=== PATIENT | female | born 1975 | race Caucasian/White ===

== ENCOUNTER 2022-11-28 11:27 | Inpatient (IN) | payer OTHER, MEDICAID ==
[~2022-11-28] VITALS: Ht 157.5 cm; Wt 90.7 kg
[2022-11-28 11:54] VITALS: BP_SYST 139; PULSE 89; RESP 16; TEMP 97.7; O2SAT 96
[2022-11-28 16:31] LABS: BILIRUBIN,URINE NEGATIVE (NEGATIVE); BLOOD, URINE NEGATIVE (NEGATIVE); CLARITY/URINE CLEAR (CLEAR); COLOR,URINE YELLOW (YELLOW); GLUCOSE,URINE NEGATIVE (NEGATIVE); KETONES,URINE TRACE (NEGATIVE); LEUKOCYTE ESTERASE ,URINE NEGATIVE (NEGATIVE); NITRITE, URINE NEGATIVE (NEGATIVE); PH,URINE 6.5 (5.0-8.0); PROTEIN URINE NEGATIVE (NEGATIVE); UROBILINOGEN,URINE 0.2 (0.2-1.0)
[2022-11-28] MEDS ORDERED: PIPERACILLIN/TAZO 4.5 GM in NS 100 ML IV ONE (17:15)
[2022-11-28] MEDS ORDERED: PIPERACILLIN/TAZOBACTAM 4.5 GM/VIAL (ZOSYN) IV ONE (17:39)
[2022-11-28 17:53] LABS: BASOPHILS # (AUTO) 0.1 K/uL (0.0-0.2); EOSINOPHILS # (AUTO) 0.2 K/uL (0.0-0.4); EOSINOPHILS % (AUTO) 2.1 % (0.0-4.0); HEMOGLOBIN 13.7 g/dL (12.0-16.0)
[2022-11-28 17:58] LABS: BASOPHILS % (AUTO) 1.3 % (0.0-2.0); HEMATOCRIT 41.2 % (36-48); LYMPHOCYTES # (AUTO) 2.8 K/uL (1.0-5.5); MEAN CORPUSCULAR HEMOGLOBIN 30 pg (27-31); MEAN CORPUSCULAR HGB CONC 33 % (32-36); MEAN CORPUSCULAR VOLUME 90 fL (79.0-98.0); MONOCYTES # (AUTO) 0.7 K/uL (0.0-1.0); MONOCYTES % (AUTO) 6.7 % (1.7-9.3); NEUTROPHILS # (AUTO) 6.2 K/uL (1.8-7.7); NEUTROPHILS % (AUTO) 61.9 % (40.0-70.0); PLATELET COUNT (AUTO) 329 K/uL (130-430); RED CELL DISTRIBUTION WIDTH 13.1 % (9.0-15.0); WHITE BLOOD COUNT (AUTO) 10.1 K/uL (4.8-10.8)
[2022-11-28 18:07] LABS: CALCIUM 8.9 mg/dL (8.4-11.0); CREATININE 0.64 mg/dL (0.55-1.30); POTASSIUM 3.8 mmol/L (3.5-5.1); TOTAL BILIRUBIN 0.1 mg/dL (0.0-1.0); TOTAL PROTEIN, SERUM 6.6 g/dL (6.4-8.3)
[2022-11-28] MEDS ORDERED: LURA40TA2 PO (18:36)
[2022-11-28] MEDS ORDERED: LISI20TA30 PO (18:36)
[2022-11-28] MEDS ORDERED: GYNECR VG (18:36)
[2022-11-28] MEDS ORDERED: TEMA30CA5 PO (18:36)
[2022-11-28] MEDS ORDERED: DOCU-156 PO (18:36)
[2022-11-28] MEDS ORDERED: TRAZ-251 PO (18:36)
[2022-11-28] MEDS ORDERED: SENN8.6T19 PO (18:36)
[2022-11-28] MEDS ORDERED: MELA10CA PO (18:36)
[2022-11-28] MEDS ORDERED: BACL10TA PO (18:36)
[2022-11-28] MEDS ORDERED: GABA-534 PO (18:36)
[2022-11-28] MEDS ORDERED: ESCI20TA PO (18:36)
[2022-11-28] MEDS ORDERED: HYDR-4038 PO (18:36)
[2022-11-28 21:30] VITALS: BP_SYST 146; PULSE 78; TEMP 98.2; O2SAT 96
[2022-11-28 22:08] VITALS: BP_SYST 146; PULSE 78; RESP 18; TEMP 98.2
[2022-11-29] VITALS (7 sets, daily range): BP systolic 137–157; PULSE 76–79; RESP 16–19; TEMP 97.6–98.2; O2SAT 95–99
[2022-11-29] MEDS ORDERED: ONDANSETRON HCL 4 MG/2 ML VIAL IVP PRN (11:45)
[2022-11-29] MEDS ORDERED: HYDROcodone/ACETAMIN 5-325 MG TAB (NORCO/ VICODIN) PO PRN ×2 (11:45→12:15)
[2022-11-29] MEDS ORDERED: ACETAMINOPHEN 325 MG TABLET PO PRN ×2 (11:45→12:15)
[2022-11-29] MEDS ORDERED: LORazepam 2 MG/ML VIAL IVP PRN (11:45)
[2022-11-29] MEDS ORDERED: NALOXONE HCL 0.4 MG/ML AMP (NARCAN) IVP PRN ×2 (11:45)
[2022-11-29] MEDS: NORMAL SALINE 5 ML DISP.SYRIN IVF SCH ×2 (13:07→22:02)
[2022-11-29] MEDS: PIPERACILLIN/TAZO 3.375/DEX-IS 50 ML IV SCH ×2 (13:22→18:09)
[2022-11-29] MEDS: GABAPENTIN 400 MG CAPSULE PO SCH ×2 (14:39→22:01)
[2022-11-29] MEDS: BACLOFEN 10 MG TABLET PO SCH ×2 (14:39→22:02)
[2022-11-29] MEDS ORDERED: CLOTRIMAZOLE 2% 3 DAY VAGINAL 21 GM CREAM.APPL VG SCH (21:00)
[2022-11-29] MEDS ORDERED: SENNOSIDES 8.6 MG TABLET PO PRN (21:00)
[2022-11-29] MEDS: MELATONIN 5 MG TABLET PO SCH (22:01)
[2022-11-29] MEDS: traZODone HCL 50 MG TABLET (DESYREL) PO SCH (22:01)
[2022-11-30] MEDS: PIPERACILLIN/TAZO 3.375/DEX-IS 50 ML IV SCH ×4 (00:27→18:13)
[2022-11-30 01:05] VITALS: BP_SYST 142; PULSE 81; RESP 17; TEMP 98; O2SAT 94
[2022-11-30] MEDS: NORMAL SALINE 5 ML DISP.SYRIN IVF SCH ×3 (06:28→21:53)
[2022-11-30 07:13] LABS: BASOPHILS # (AUTO) 0.1 K/uL (0.0-0.2); BASOPHILS % (AUTO) 1.5 % (0.0-2.0); EOSINOPHILS # (AUTO) 0.1 K/uL (0.0-0.4); EOSINOPHILS % (AUTO) 1.7 % (0.0-4.0); HEMATOCRIT 41.8 % (36-48); HEMOGLOBIN 13.6 g/dL (12.0-16.0); LYMPHOCYTES # (AUTO) 2.1 K/uL (1.0-5.5); LYMPHOCYTES % (AUTO) 29.1 % (20.5-51.5); MEAN CORPUSCULAR HEMOGLOBIN 29 pg (27-31); MEAN CORPUSCULAR HGB CONC 33 % (32-36); MEAN CORPUSCULAR VOLUME 90 fL (79.0-98.0); MONOCYTES # (AUTO) 0.6 K/uL (0.0-1.0); MONOCYTES % (AUTO) 7.8 % (1.7-9.3); NEUTROPHILS # (AUTO) 4.3 K/uL (1.8-7.7); NEUTROPHILS % (AUTO) 59.9 % (40.0-70.0); PLATELET COUNT (AUTO) 296 K/uL (130-430); RED BLOOD CELL COUNT(AUTO) 4.66 MIL/uL (4.2-6.2); RED CELL DISTRIBUTION WIDTH 13.3 % (9.0-15.0); WHITE BLOOD COUNT (AUTO) 7.1 K/uL (4.8-10.8)
[2022-11-30 08:00] VITALS: BP_SYST 130; PULSE 69; RESP 16; TEMP 96.7; O2SAT 94
[2022-11-30 08:03] LABS: CALCIUM 8.9 mg/dL (8.4-11.0); CREATININE 0.6 mg/dL (0.55-1.30); POTASSIUM 3.7 mmol/L (3.5-5.1)
[2022-11-30] MEDS: GABAPENTIN 400 MG CAPSULE PO SCH ×3 (08:36→21:51)
[2022-11-30] MEDS: CITALOPRAM HYDROBROMIDE 20 MG TABLET PO SCH (08:36)
[2022-11-30] MEDS: DOCUSATE SODIUM 100 MG CAPSULE PO SCH (08:36)
[2022-11-30] MEDS: lisinopriL 20 MG TABLET PO SCH (08:37)
[2022-11-30] MEDS: BACLOFEN 10 MG TABLET PO SCH ×3 (08:37→21:52)
[2022-11-30] MEDS ORDERED: ESCITALOPRAM OXALATE 10 MG TABLET PO SCH (09:00)
[2022-11-30 09:45] VITALS: O2SAT 97
[2022-11-30 12:00] VITALS: BP_SYST 136; PULSE 72; RESP 17; TEMP 97.6; O2SAT 97
[2022-11-30 16:38] VITALS: BP_SYST 132; PULSE 70; RESP 16; TEMP 96.9; O2SAT 96
[2022-11-30 19:00] VITALS: O2SAT 95
[2022-11-30] MEDS: traZODone HCL 50 MG TABLET (DESYREL) PO SCH (21:51)
[2022-11-30] MEDS: MELATONIN 5 MG TABLET PO SCH (21:52)
[2022-11-30] MEDS: TEMAZEPAM 15 MG CAPSULE PO SCH (21:52)
[2022-12-01] VITALS: BP_SYST 143; PULSE 68; RESP 16; TEMP 97.9; O2SAT 96
[2022-12-01] MEDS: PIPERACILLIN/TAZO 3.375/DEX-IS 50 ML IV SCH ×2 (00:47→06:48)
[2022-12-01] MEDS: NORMAL SALINE 5 ML DISP.SYRIN IVF SCH ×3 (06:48→23:56)
[2022-12-01 07:17] LABS: BASOPHILS # (AUTO) 0.1 K/uL (0.0-0.2); BASOPHILS % (AUTO) 1.5 % (0.0-2.0); EOSINOPHILS # (AUTO) 0.1 K/uL (0.0-0.4); EOSINOPHILS % (AUTO) 2.2 % (0.0-4.0); HEMATOCRIT 41.4 % (36-48); HEMOGLOBIN 13.5 g/dL (12.0-16.0); LYMPHOCYTES % (AUTO) 32.2 % (20.5-51.5); MEAN CORPUSCULAR HEMOGLOBIN 29 pg (27-31); MEAN CORPUSCULAR HGB CONC 33 % (32-36); MEAN CORPUSCULAR VOLUME 90 fL (79.0-98.0); MONOCYTES # (AUTO) 0.5 K/uL (0.0-1.0); MONOCYTES % (AUTO) 7.2 % (1.7-9.3); NEUTROPHILS # (AUTO) 3.6 K/uL (1.8-7.7); NEUTROPHILS % (AUTO) 56.9 % (40.0-70.0); PLATELET COUNT (AUTO) 285 K/uL (130-430); RED BLOOD CELL COUNT(AUTO) 4.59 MIL/uL (4.2-6.2); RED CELL DISTRIBUTION WIDTH 13.2 % (9.0-15.0); WHITE BLOOD COUNT (AUTO) 6.3 K/uL (4.8-10.8)
[2022-12-01 07:18] LABS: CALCIUM 8.9 mg/dL (8.4-11.0); POTASSIUM 3.7 mmol/L (3.5-5.1)
[2022-12-01 07:19] LABS: ALBUMIN 2.8 g/dL (3.4-4.8); CREATININE 0.62 mg/dL (0.55-1.30); TOTAL BILIRUBIN 0.3 mg/dL (0.0-1.0); TOTAL PROTEIN, SERUM 6.3 g/dL (6.4-8.3)
[2022-12-01 07:35] LABS: ERYTHROCYTE SEDIMENTATION RATE 16 MM/HR (0-20)
[2022-12-01 11:09] VITALS: BP_SYST 138; PULSE 75; RESP 15; TEMP 98.6; O2SAT 91
[2022-12-01] MEDS: CITALOPRAM HYDROBROMIDE 20 MG TABLET PO SCH (11:46)
[2022-12-01] MEDS: BACLOFEN 10 MG TABLET PO SCH ×3 (11:46→23:55)
[2022-12-01] MEDS: GABAPENTIN 400 MG CAPSULE PO SCH ×3 (11:48→23:55)
[2022-12-01] MEDS: DOCUSATE SODIUM 100 MG CAPSULE PO SCH (11:48)
[2022-12-01] MEDS: lisinopriL 20 MG TABLET PO SCH (11:49)
[2022-12-01] MEDS: ERTAPENEM SODIUM 1 GM in NS 50 ML IV SCH (12:41)
[2022-12-01 17:09] VITALS: BP_SYST 132; PULSE 76; RESP 15; TEMP 98.6; O2SAT 95
[2022-12-01 20:15] VITALS: BP_SYST 147; PULSE 75; RESP 20; TEMP 97; O2SAT 95
[2022-12-01] MEDS: MELATONIN 5 MG TABLET PO SCH (23:54)
[2022-12-01] MEDS: traZODone HCL 50 MG TABLET (DESYREL) PO SCH (23:55)
[2022-12-01] MEDS: TEMAZEPAM 15 MG CAPSULE PO SCH (23:55)
[2022-12-02 00:34] VITALS: BP_SYST 171; PULSE 71; RESP 18; TEMP 97.4; O2SAT 95
[2022-12-02] MEDS: hydrALAZINE HCL 25 MG TABLET PO PRN ×2 (01:35→19:56)
[2022-12-02 04:36] LABS: BASOPHILS # (AUTO) 0.1 K/uL (0.0-0.2); BASOPHILS % (AUTO) 1.4 % (0.0-2.0); CREATININE 0.57 mg/dL (0.55-1.30); EOSINOPHILS # (AUTO) 0.2 K/uL (0.0-0.4); EOSINOPHILS % (AUTO) 2.2 % (0.0-4.0); HEMATOCRIT 41.8 % (36-48); HEMOGLOBIN 13.8 g/dL (12.0-16.0); LYMPHOCYTES # (AUTO) 2.8 K/uL (1.0-5.5); LYMPHOCYTES % (AUTO) 37.3 % (20.5-51.5); MEAN CORPUSCULAR HEMOGLOBIN 30 pg (27-31); MEAN CORPUSCULAR HGB CONC 33 % (32-36); MEAN CORPUSCULAR VOLUME 90 fL (79.0-98.0); MONOCYTES # (AUTO) 0.6 K/uL (0.0-1.0); MONOCYTES % (AUTO) 7.6 % (1.7-9.3); NEUTROPHILS # (AUTO) 3.9 K/uL (1.8-7.7); NEUTROPHILS % (AUTO) 51.5 % (40.0-70.0); PLATELET COUNT (AUTO) 301 K/uL (130-430); POTASSIUM 3.4 mmol/L (3.5-5.1); RED BLOOD CELL COUNT(AUTO) 4.67 MIL/uL (4.2-6.2); RED CELL DISTRIBUTION WIDTH 13.1 % (9.0-15.0); WHITE BLOOD COUNT (AUTO) 7.5 K/uL (4.8-10.8)
[2022-12-02] MEDS: NORMAL SALINE 5 ML DISP.SYRIN IVF SCH ×2 (06:12→14:00)
[2022-12-02 08:00] VITALS: BP_SYST 140; PULSE 79; RESP 19; TEMP 97.7; O2SAT 97; O2SAT 98
[2022-12-02] MEDS: lisinopriL 20 MG TABLET PO SCH (09:32)
[2022-12-02] MEDS: DOCUSATE SODIUM 100 MG CAPSULE PO SCH (09:32)
[2022-12-02] MEDS: BACLOFEN 10 MG TABLET PO SCH ×2 (09:32→16:13)
[2022-12-02] MEDS: GABAPENTIN 400 MG CAPSULE PO SCH ×2 (09:33→16:14)
[2022-12-02] MEDS: CITALOPRAM HYDROBROMIDE 20 MG TABLET PO SCH (09:33)
[2022-12-02] MEDS ORDERED: POTASSIUM CHLORIDE 20 MEQ TAB.PRT.SR PO ONE (10:30)
[2022-12-02 11:43] VITALS: BP_SYST 129; PULSE 74; RESP 15; TEMP 98.6; O2SAT 95
[2022-12-02] MEDS: ERTAPENEM SODIUM 1 GM in NS 50 ML IV SCH (12:08)
[2022-12-02 16:39] VITALS: BP_SYST 133; PULSE 74; RESP 16; TEMP 98.7; O2SAT 98
[2022-12-02 18:22] VITALS: BP_SYST 160; PULSE 90; RESP 19; TEMP 98.7; O2SAT 99
[2022-12-02 20:10] VITALS: BP_SYST 146; PULSE 88; RESP 19; TEMP 97.8; O2SAT 98
[2022-12-02] MEDS ORDERED: ERTA1VIA3 INJ (20:20)
== END 2022-12-02 21:11 | DRG 690 ==
LOC: SED 11:27 → SMU 17:18
PROVIDERS: ADMIT Preventive Medicine Preventive Medicine/Occupational Environmental Medicine; ATTEND Preventive Medicine Preventive Medicine/Occupational Environmental Medicine
PROC: 05HY33Z Insertion of Infusion Device into Upper Vein, Percutaneous Approach (ICD-10-PCS; principal; 2022-12-02)
PROC: B54NZZA Ultrasonography of Left Upper Extremity Veins, Guidance (ICD-10-PCS; 2022-12-02)
DX: N10 Acute pyelonephritis (principal); E44.0 Moderate protein-calorie malnutrition; E87.1 Hypo-osmolality and hyponatremia; E87.6 Hypokalemia; F70 Mild intellectual disabilities; G80.9 Cerebral palsy, unspecified; E88.09 Other disorders of plasma-protein metabolism, not elsewhere classified; F32.A Depression, unspecified; M54.9 Dorsalgia, unspecified; B96.4 Proteus (mirabilis) (morganii) as the cause of diseases classified elsewhere; I10 Essential (primary) hypertension; K59.00 Constipation, unspecified; G47.00 Insomnia, unspecified; L30.4 Erythema intertrigo; Z79.899 Other long term (current) drug therapy; Z87.440 Personal history of urinary (tract) infections; Z68.36 Body mass index [BMI] 36.0-36.9, adult
CPT/HCPCS: 36415; 80048; 80053; 81001; 81003; 85025; 85651-TC; 87040; 87086; 96365; 99285; J1335; J2543